=== PATIENT | male | born 1950 | race Caucasian/White ===

== ENCOUNTER 2016-10-17 13:44 | Inpatient (IN) | payer MEDICARE, BC ==
[~2016-10-17] VITALS: Ht 177.8 cm; Wt 110.5 kg
[2016-10-17] VITALS (415 sets, daily range): BP systolic 106–124; BP diastolic 57–92; PULSE 95–103; TEMP 96–99.2; O2SAT 80–100
[~2016-10-17 13:44] MED LIST: ADVAIR 250/28 DISKU1 IH; ALBUTEROL0.09 MG/A4 IH; ALBUTEROL0.83 MG/ML IH; AMOXICILLIN 8751 TAB PO; ANTIVERT 25MG25 MG PO; ASPIRIN E.C. 8181 MG PO; ATIVAN 1MG T1 MG/TAB PO; BENAZEPRIL40 MG PO; BUDESONIDE0.5 MG/2 M IH; BUPROPION300 MG PO; BYSTOLIC5 MG PO; CARDI-OMEGA1000 MG PO; COLCRYS0.6 MG PO; DALIRESP500 MCG PO; FLONASE NASAL S16 GM NS; FOLIC ACID 11 MG/TA1 PO; HCTZ 25MG TAB25 MG PO; HCTZ 25MG25 MG PO; K-DUR 2020 MEQ PO; LOTENSIN40 MG PO; MULTAQ400 MG PO; MULTIPLE VITAMI1 CAP PO; OYSCO 500500 M1 PO; PERFOROMIS20 MCG/2 M IH; PLAVIX 75MG TAB75 MG PO; PRADAXA 150MG150 MG PO; PRADAXA PO; PRADAXA150 MG PO; PRAVACHOL 40MG40 MG PO; PRAVACHOL40 MG PO; PREDNISONE20 MG PO; PROAIR HFA0.09 MG/AC IH; PULMICORT0.5 MG/2 M IH; RANITIDINE300 MG PO; RECLAST5 MG/1001 IV; RT ADVAIR 228 DISKUS IH; RT SPIRIVA18 MCG IH; THEO-DUR 2200 MG/TAB PO; TIKOSYN0.25 MG PO; WELLBUTRIN XL300 M1 PO; ZANTAC 300300 MG PO; ZOCOR 80MG80 MG PO; ZOCOR80 MG PO
[2016-10-17] MEDS ORDERED: LEVAQUIN 5500 MG/TA1 PO (13:58)
[2016-10-17] MEDS ORDERED: BYSTOLIC10 MG PO (14:02)
[2016-10-17 14:19] LABS: HEMATOCRIT 40.2 % (42.0-52.0); HEMOGLOBIN 12.5 g/dl (13.5-18.0); MEAN CELL VOLUME 98 fl (80.0-100.0); MEAN CORPUSCULAR HEMOGLOBIN 31 pg (27.0-31.0); MEAN CORPUSCULAR HGB CONC 31 g/dl (33.0-37.0); MEAN PLATELET VOLUME 10.1 fl (7.4-10.4); PLATELET COUNT 310 K/mm3 (130-400); REDCELL DISTRIBUTION WIDTH-CV 15.6 % (11.5-14.5)
[2016-10-17 14:19] LABS: ARTERIAL BLD GAS O2 SATURATION 96.2 % (92-100); ARTERIAL BLD GAS TCO2 CT 35.1; ARTERIAL BLOOD GAS BASE EXCESS 3.2 (-2-2); ARTERIAL BLOOD GAS HCO3 32.7 meq/L (22-26); ARTERIAL BLOOD GAS PHT 7.25 C (7.35-7.45); ARTERIAL BLOOD GAS PO2 96.6 mmHg (80-100); ARTERIAL BLOOD GAS PO2T 96.6 (80-100); ARTERIAL BLOOD GAS pH 7.25 (7.35-7.45); OXYHEMOGLOBIN 94.8 %
[2016-10-17 14:20] LABS: ALLEN TEST NO; ATS? YES
[2016-10-17 14:24] LABS: ADD PATHOLOGY DIFF REVIEW NO
[2016-10-17 14:26] LABS: PARTIAL THROMBOPLASTIN TIME 33.6 SECONDS (26.0-37.0)
[2016-10-17 14:31] LABS: INR 1.2 (0.8-3.0); PROTHROMBIN TIME 13.1 SECONDS (9.7-12.8)
[2016-10-17 14:44] LABS: BAND 6 % (0-10); METAMYELOCYTE 1 % (0-0); MYELOCYTE 3 % (0-0); NEUTROPHILS 80 % (42.0-75.2)
[2016-10-17 14:45] LABS: ADJUSTED CALCIUM 9.1 mg/dL (8.4-10.2); ALBUMIN 4.5 gm/dL (3.5-5.0); BILIRUBIN,TOTAL 0.8 mg/dL (0.0-1.0); CALCIUM 9.5 mg/dL (8.4-10.2); CREATININE, serum 1.01 mg/dL (0.66-1.25); PLATELET ESTIMATE NORMAL (NORMAL); POTASSIUM 4.9 mmol/L (3.4-5.0); TOTAL PROTEIN 7.9 gm/dL (6.4-8.2)
[2016-10-17 14:46] LABS: TOTAL CELLS COUNTED 101
[2016-10-17 14:56] LABS: TROPONIN-I 0.014 ng/mL (0.000-0.034)
[2016-10-17 16:11] LABS: PH 5 (5-8); SQUAMOUS EPITHELIAL 0-2 /hpf; URINE APPEARANCE Clear; URINE BACTERIA Rare /hpf; URINE BILIRUBIN Negative (NEGATIVE); URINE BLOOD Negative (NEGATIVE); URINE COLOR Yellow; URINE GLUCOSE Negative (NEGATIVE); URINE KETONE Negative (NEGATIVE); URINE RBC 0-2 /hpf; URINE UROBILINOGEN Negative (NEGATIVE); URINE WBC 0-2 /hpf
[2016-10-18] VITALS (1381 sets, daily range): BP systolic 115–168; BP diastolic 62–92; PULSE 71–91; TEMP 96.2–98.7; O2SAT 69–100
[2016-10-18 05:02] LABS: ARTERIAL BLD GAS TCO2 CT 36.6; ARTERIAL BLOOD GAS BASE EXCESS 7.8 (-2-2); ARTERIAL BLOOD GAS HCO3 34.8 meq/L (22-26); ARTERIAL BLOOD GAS PHT 7.38 C (7.35-7.45); ARTERIAL BLOOD GAS PO2 63.2 mmHg (80-100); ARTERIAL BLOOD GAS PO2T 63.2 (80-100); ARTERIAL BLOOD GAS pH 7.38 (7.35-7.45); OXYHEMOGLOBIN 89.7 %
[2016-10-18 05:04] LABS: ARTERIAL BLD GAS TCO2 CT 36.6; ARTERIAL BLOOD GAS BASE EXCESS 7.8 (-2-2); ARTERIAL BLOOD GAS HCO3 34.8 meq/L (22-26); ARTERIAL BLOOD GAS PO2 63.2 mmHg (80-100); ARTERIAL BLOOD GAS pH 7.38 (7.35-7.45); ATS? YES
[2016-10-18 09:41] LABS: ATS? YES
[2016-10-18 09:42] LABS: ALLEN TEST NO
[2016-10-18 12:44] LABS: MEAN CELL VOLUME 97 fl (80.0-100.0); MEAN CORPUSCULAR HGB CONC 32 g/dl (33.0-37.0); MEAN PLATELET VOLUME 9.8 fl (7.4-10.4); PLATELET COUNT 260 K/mm3 (130-400); RED BLOOD COUNT 3.64 M/mm3 (4.20-5.60); REDCELL DISTRIBUTION WIDTH-CV 15.7 % (11.5-14.5)
[2016-10-18 12:48] LABS: HEMATOCRIT 35.4 % (42.0-52.0); HEMOGLOBIN 11.3 g/dl (13.5-18.0); MEAN CORPUSCULAR HEMOGLOBIN 31 pg (27.0-31.0)
[2016-10-18 12:49] LABS: WHITE BLOOD COUNT 34.7 K/mm3 (4.8-10.8)
[2016-10-18 14:44] LABS: BAND 26 % (0-10); BASOPHIL 1 % (0-2); METAMYELOCYTE 3 % (0-0); MYELOCYTE 4 % (0-0); NEUTROPHILS 58 % (42.0-75.2); TOTAL CELLS COUNTED 300
[2016-10-18 14:46] LABS: ADD PATHOLOGY DIFF REVIEW YES; PLATELET ESTIMATE NORMAL (NORMAL)
[2016-10-18 17:08] LABS: CEREBROSPINAL TUBE #4; CSF APPEARANCE CLEAR; CSF COLOR COLORLESS
[2016-10-19] VITALS (1414 sets, daily range): BP systolic 129–173; BP diastolic 83–96; PULSE 72–104; TEMP 97.2–98.8; O2SAT 66–100
[2016-10-19 05:36] LABS: MEAN CELL VOLUME 99 fl (80.0-100.0); MEAN CORPUSCULAR HGB CONC 31 g/dl (33.0-37.0); MEAN PLATELET VOLUME 10.4 fl (7.4-10.4); PLATELET COUNT 284 K/mm3 (130-400); RED BLOOD COUNT 3.71 M/mm3 (4.20-5.60); REDCELL DISTRIBUTION WIDTH-CV 15.6 % (11.5-14.5)
[2016-10-19 05:37] LABS: HEMATOCRIT 36.6 % (42.0-52.0); HEMOGLOBIN 11.2 g/dl (13.5-18.0); MEAN CORPUSCULAR HEMOGLOBIN 30 pg (27.0-31.0); WHITE BLOOD COUNT 48.1 K/mm3 (4.8-10.8)
[2016-10-19 05:52] LABS: ADJUSTED CALCIUM 9.1 mg/dL (8.4-10.2); ALBUMIN 3.8 gm/dL (3.5-5.0); BILIRUBIN,TOTAL 0.7 mg/dL (0.0-1.0); CALCIUM 8.9 mg/dL (8.4-10.2); CREATININE, serum 0.93 mg/dL (0.66-1.25); POTASSIUM 3.8 mmol/L (3.4-5.0); TOTAL PROTEIN 6.7 gm/dL (6.4-8.2)
[2016-10-19 08:41] LABS: PATHOLOGY DIFF REVIEW OK +
[2016-10-19 14:18] LABS: ARTERIAL BLD GAS O2 SATURATION 95.8 % (92-100); ARTERIAL BLD GAS TCO2 CT 42.5; ARTERIAL BLOOD GAS BASE EXCESS 11.2 (-2-2); ARTERIAL BLOOD GAS HCO3 40.2 meq/L (22-26); ARTERIAL BLOOD GAS PHT 7.34 C (7.35-7.45); ARTERIAL BLOOD GAS pH 7.34 (7.35-7.45); OXYHEMOGLOBIN 94.6 %
[2016-10-19 14:19] LABS: ALLEN TEST YES; ALLENS TEST RESULT PASS; ATS? YES
[2016-10-20] VITALS (1157 sets, daily range): BP systolic 105–168; BP diastolic 71–94; PULSE 79–107; TEMP 96.9–98.5; O2SAT 52–100
[2016-10-20 01:25] LABS: ARTERIAL BLD GAS O2 SATURATION 96.4 % (92-100); ARTERIAL BLD GAS TCO2 CT 35.4; ARTERIAL BLOOD GAS BASE EXCESS 5.2 (-2-2); ARTERIAL BLOOD GAS HCO3 33.3 meq/L (22-26); ARTERIAL BLOOD GAS PHT 7.31 C (7.35-7.45); ARTERIAL BLOOD GAS PO2 100.3 mmHg (80-100); ARTERIAL BLOOD GAS PO2T 100.3 (80-100); ARTERIAL BLOOD GAS pH 7.31 (7.35-7.45); ATS? YES; OXYHEMOGLOBIN 95.4 %
[2016-10-20 01:26] LABS: ALLEN TEST YES; ALLENS TEST RESULT PASS
[2016-10-20 05:26] LABS: MEAN CELL VOLUME 100 fl (80.0-100.0); MEAN CORPUSCULAR HGB CONC 31 g/dl (33.0-37.0); MEAN PLATELET VOLUME 10.1 fl (7.4-10.4); PLATELET COUNT 278 K/mm3 (130-400); RED BLOOD COUNT 3.45 M/mm3 (4.20-5.60); REDCELL DISTRIBUTION WIDTH-CV 15.9 % (11.5-14.5)
[2016-10-20 05:34] LABS: HEMATOCRIT 34.5 % (42.0-52.0); HEMOGLOBIN 10.6 g/dl (13.5-18.0); MEAN CORPUSCULAR HEMOGLOBIN 31 pg (27.0-31.0); WHITE BLOOD COUNT 62.8 K/mm3 (4.8-10.8)
[2016-10-20 05:46] LABS: ADJUSTED CALCIUM 9.1 mg/dL (8.4-10.2); ALBUMIN 3.5 gm/dL (3.5-5.0); BILIRUBIN,TOTAL 0.7 mg/dL (0.0-1.0); CALCIUM 8.7 mg/dL (8.4-10.2); CREATININE, serum 0.96 mg/dL (0.66-1.25); TOTAL PROTEIN 6.3 gm/dL (6.4-8.2)
[2016-10-21] VITALS (857 sets, daily range): BP systolic 117–154; BP diastolic 77–97; PULSE 73–110; TEMP 97–98.7; O2SAT 62–100
[2016-10-21 04:47] LABS: MEAN CELL VOLUME 100 fl (80.0-100.0); MEAN CORPUSCULAR HGB CONC 31 g/dl (33.0-37.0); PLATELET COUNT 267 K/mm3 (130-400); RED BLOOD COUNT 3.38 M/mm3 (4.20-5.60); REDCELL DISTRIBUTION WIDTH-CV 15.9 % (11.5-14.5)
[2016-10-21 04:53] LABS: ADD PATHOLOGY DIFF REVIEW NO; HEMATOCRIT 33.8 % (42.0-52.0); HEMOGLOBIN 10.4 g/dl (13.5-18.0); MEAN CORPUSCULAR HEMOGLOBIN 31 pg (27.0-31.0); WHITE BLOOD COUNT 54.4 K/mm3 (4.8-10.8)
[2016-10-21 04:57] LABS: ADJUSTED CALCIUM 9.2 mg/dL (8.4-10.2); ALBUMIN 3.5 gm/dL (3.5-5.0); BILIRUBIN,TOTAL 0.7 mg/dL (0.0-1.0); CALCIUM 8.8 mg/dL (8.4-10.2); CREATININE, serum 0.99 mg/dL (0.66-1.25); POTASSIUM 3.8 mmol/L (3.4-5.0); TOTAL PROTEIN 6.1 gm/dL (6.4-8.2)
[2016-10-21 05:30] LABS: BAND 24 % (0-10); NEUTROPHILS 53 % (42.0-75.2)
[2016-10-21 05:33] LABS: TOTAL CELLS COUNTED 100
[2016-10-22] VITALS (573 sets, daily range): BP systolic 115–157; BP diastolic 62–96; PULSE 70–96; TEMP 97.7–98.5; O2SAT 84–100
[2016-10-22 05:48] LABS: MEAN CELL VOLUME 102 fl (80.0-100.0); MEAN CORPUSCULAR HGB CONC 30 g/dl (33.0-37.0); MEAN PLATELET VOLUME 9.8 fl (7.4-10.4); PLATELET COUNT 266 K/mm3 (130-400); RED BLOOD COUNT 3.41 M/mm3 (4.20-5.60); REDCELL DISTRIBUTION WIDTH-CV 15.8 % (11.5-14.5)
[2016-10-22 05:51] LABS: HEMATOCRIT 34.7 % (42.0-52.0); HEMOGLOBIN 10.5 g/dl (13.5-18.0); MEAN CORPUSCULAR HEMOGLOBIN 31 pg (27.0-31.0); WHITE BLOOD COUNT 40.1 K/mm3 (4.8-10.8)
[2016-10-22 05:52] LABS: ADD PATHOLOGY DIFF REVIEW NO
[2016-10-22 06:22] LABS: BAND 14 % (0-10); NEUTROPHILS 63 % (42.0-75.2); TOTAL CELLS COUNTED 100
[2016-10-23] VITALS (8 sets, daily range): BP systolic 118–160; BP diastolic 62–87; PULSE 77–87; TEMP 97.5–98.8
[2016-10-24 04:02] VITALS: BP 131/91; PULSE 84; TEMP 97.5
[2016-10-24 07:22] LABS: CALCIUM 8.9 mg/dL (8.4-10.2); CREATININE, serum 1.99 mg/dL (0.66-1.25); MAGNESIUM 2.3 mg/dL (1.6-2.3); PHOSPHOROUS 4.6 mg/dL (2.5-4.5); POTASSIUM 3.4 mmol/L (3.4-5.0)
[2016-10-24 07:32] LABS: MEAN CELL VOLUME 103 fl (80.0-100.0); MEAN CORPUSCULAR HGB CONC 30 g/dl (33.0-37.0); MEAN PLATELET VOLUME 10.3 fl (7.4-10.4); PLATELET COUNT 267 K/mm3 (130-400); RED BLOOD COUNT 3.17 M/mm3 (4.20-5.60); REDCELL DISTRIBUTION WIDTH-CV 15.8 % (11.5-14.5)
[2016-10-24 07:45] LABS: ADD PATHOLOGY DIFF REVIEW NO; HEMATOCRIT 32.5 % (42.0-52.0); HEMOGLOBIN 9.8 g/dl (13.5-18.0); MEAN CORPUSCULAR HEMOGLOBIN 31 pg (27.0-31.0)
[2016-10-24 07:56] VITALS: BP 154/79; PULSE 87; TEMP 97
[2016-10-24 08:34] LABS: BAND 5 % (0-10); EOSINOPHIL 1 % (0-4); NEUTROPHILS 75 % (42.0-75.2); TOTAL CELLS COUNTED 100
[2016-10-24 12:27] VITALS: BP 133/81; PULSE 77; TEMP 97.2
[2016-10-24 13:12] LABS: ARTERIAL BLD GAS O2 SATURATION 96.1 % (92-100); ARTERIAL BLOOD GAS BASE EXCESS 13.1 (-2-2); ARTERIAL BLOOD GAS HCO3 41.5 meq/L (22-26); ARTERIAL BLOOD GAS PHT 7.34 C (7.35-7.45); ARTERIAL BLOOD GAS PO2 95.8 mmHg (80-100); ARTERIAL BLOOD GAS PO2T 95.8 (80-100); ARTERIAL BLOOD GAS pH 7.34 (7.35-7.45); OXYHEMOGLOBIN 95.1 %
[2016-10-24 13:14] LABS: ALLEN TEST YES; ALLENS TEST RESULT PASS; ATS? YES
[2016-10-24 16:45] VITALS: BP 162/82; PULSE 78; TEMP 98.3
[2016-10-24 19:53] VITALS: BP 156/86; PULSE 77; TEMP 98.2
[2016-10-24 23:48] VITALS: BP 144/76; PULSE 80; TEMP 98.9
[2016-10-25 04:01] VITALS: BP 165/81; PULSE 80; TEMP 96.8
[2016-10-25 08:29] VITALS: BP 150/84; PULSE 87; TEMP 98.4
[2016-10-25 11:24] VITALS: BP 160/88; PULSE 77; TEMP 98.2
[2016-10-25 16:45] VITALS: BP 144/85; PULSE 100; TEMP 98
[2016-10-25 18:10] VITALS: BP 144/85; PULSE 81; TEMP 98
[2016-10-25 20:15] VITALS: BP 171/73; PULSE 78; TEMP 98.3
[2016-10-26 00:17] VITALS: BP 167/90; PULSE 70; TEMP 97.3
[2016-10-26 04:04] VITALS: BP 171/88; PULSE 77; TEMP 98.1
[2016-10-26 08:00] VITALS: BP 180/98; PULSE 79; TEMP 99.5
[2016-10-26 11:26] VITALS: BP 149/90; PULSE 74; TEMP 98.8
[2016-10-26 16:09] VITALS: BP 187/84; PULSE 79; TEMP 98.6
[2016-10-26 20:27] VITALS: BP 168/73; PULSE 70; TEMP 98.3
[2016-10-27] VITALS (14 sets, daily range): BP systolic 138–181; BP diastolic 69–100; PULSE 66–701; TEMP 97.6–98.5
[2016-10-27 07:58] LABS: ADD PATHOLOGY DIFF REVIEW NO
[2016-10-27 08:00] LABS: MEAN CELL VOLUME 100 fl (80.0-100.0); MEAN CORPUSCULAR HGB CONC 31 g/dl (33.0-37.0); PLATELET COUNT 245 K/mm3 (130-400); RED BLOOD COUNT 3.31 M/mm3 (4.20-5.60); REDCELL DISTRIBUTION WIDTH-CV 15.4 % (11.5-14.5); WHITE BLOOD COUNT 18.4 K/mm3 (4.8-10.8)
[2016-10-27 08:09] LABS: HEMATOCRIT 33.2 % (42.0-52.0); HEMOGLOBIN 10.3 g/dl (13.5-18.0); MEAN CORPUSCULAR HEMOGLOBIN 31 pg (27.0-31.0)
[2016-10-27 08:18] LABS: CALCIUM 9.3 mg/dL (8.4-10.2); CREATININE, serum 1.87 mg/dL (0.66-1.25); POTASSIUM 3.1 mmol/L (3.4-5.0)
[2016-10-27 09:12] LABS: EOSINOPHIL 2 % (0-4); NEUTROPHILS 86 % (42.0-75.2); PLATELET ESTIMATE NORMAL (NORMAL); TOTAL CELLS COUNTED 100
[2016-10-28 03:42] VITALS: BP 149/75; PULSE 74; TEMP 98.2
[2016-10-28 08:05] VITALS: BP 169/78; PULSE 75; TEMP 98.1
[2016-10-28 08:48] LABS: ARTERIAL BLD GAS O2 SATURATION 97.9 % (92-100); ARTERIAL BLD GAS TCO2 CT 35.9; ARTERIAL BLOOD GAS BASE EXCESS 7.9 (-2-2); ARTERIAL BLOOD GAS HCO3 34.1 meq/L (22-26); OXYHEMOGLOBIN 96.9 %
[2016-10-28 08:49] LABS: ARTERIAL BLOOD GAS PO2 132.3 mmHg (80-100); ARTERIAL BLOOD GAS PO2T 132.3 (80-100)
[2016-10-28 08:50] LABS: ALLEN TEST YES; ALLENS TEST RESULT PASS; ATS? YES
[2016-10-28 11:53] VITALS: BP 158/79; PULSE 68; TEMP 98.1
[2016-10-28 15:43] VITALS: BP 175/88; PULSE 80; TEMP 98.1
[2016-10-28 20:06] VITALS: BP 138/73; PULSE 72; TEMP 97
[2016-10-28 23:29] VITALS: BP 136/74; PULSE 68; TEMP 98.4
[2016-10-29 03:56] VITALS: BP 176/82; PULSE 69; TEMP 98
[2016-10-29 08:32] VITALS: BP 154/77; PULSE 97; TEMP 98.4
[2016-10-29 12:27] VITALS: BP 147/79; PULSE 73; TEMP 97.7
[2016-10-29 16:47] VITALS: BP 155/78; PULSE 73; TEMP 97.8
[2016-10-29 20:33] VITALS: BP 156/74; PULSE 72; TEMP 97.3
[2016-10-30 00:28] VITALS: BP 165/85; PULSE 65; TEMP 97.6
[2016-10-30 03:51] VITALS: BP 185/87; PULSE 69; TEMP 97.4
[2016-10-30 07:11] LABS: MEAN CELL VOLUME 98 fl (80.0-100.0); MEAN CORPUSCULAR HGB CONC 31 g/dl (33.0-37.0); MEAN PLATELET VOLUME 10.8 fl (7.4-10.4); PLATELET COUNT 238 K/mm3 (130-400); RED BLOOD COUNT 3.13 M/mm3 (4.20-5.60); REDCELL DISTRIBUTION WIDTH-CV 15.3 % (11.5-14.5); WHITE BLOOD COUNT 13.1 K/mm3 (4.8-10.8)
[2016-10-30 07:19] LABS: ADD PATHOLOGY DIFF REVIEW NO; HEMATOCRIT 30.8 % (42.0-52.0); HEMOGLOBIN 9.6 g/dl (13.5-18.0); MEAN CORPUSCULAR HEMOGLOBIN 31 pg (27.0-31.0)
[2016-10-30 08:19] LABS: BAND 1 % (0-10); MYELOCYTE 1 % (0-0); NEUTROPHILS 83 % (42.0-75.2); PLATELET ESTIMATE NORMAL (NORMAL); TOTAL CELLS COUNTED 100
[2016-10-30 09:28] VITALS: BP 180/89; PULSE 78; TEMP 97.8
[2016-10-30 10:12] LABS: ARTERIAL BLD GAS TCO2 CT 34.4; ARTERIAL BLOOD GAS PO2T 113.9 (80-100)
[2016-10-30 10:16] LABS: ARTERIAL BLOOD GAS HCO3 32.7 meq/L (22-26); ARTERIAL BLOOD GAS PO2 113.9 mmHg (80-100)
[2016-10-30 10:17] LABS: ALLEN TEST YES; ALLENS TEST RESULT PASS; ARTERIAL BLD GAS O2 SATURATION 97.6 % (92-100); ARTERIAL BLOOD GAS BASE EXCESS 6.6 (-2-2); ATS? YES
[2016-10-30 12:12] VITALS: BP 178/86; PULSE 66; TEMP 98.7
[2016-10-30 16:31] VITALS: BP 163/78; PULSE 65; TEMP 97.4
[2016-10-30 19:56] VITALS: BP 176/87; PULSE 66; TEMP 97
[2016-10-31 00:26] VITALS: BP 178/84; PULSE 69; TEMP 97.6
[2016-10-31 02:45] VITALS: BP 184/89; PULSE 73; TEMP 97
[2016-10-31 07:40] VITALS: BP 188/93; PULSE 68
[2016-10-31 08:06] LABS: ARTERIAL BLD GAS O2 SATURATION 98.8 % (92-100); ARTERIAL BLOOD GAS BASE EXCESS 6.3 (-2-2); ARTERIAL BLOOD GAS HCO3 33.2 meq/L (22-26); ARTERIAL BLOOD GAS PHT 7.37 C (7.35-7.45); ARTERIAL BLOOD GAS pH 7.37 (7.35-7.45)
[2016-10-31 08:07] LABS: ARTERIAL BLOOD GAS PO2 190.4 mmHg (80-100); ARTERIAL BLOOD GAS PO2T 190.4 (80-100); ATS? YES
[2016-10-31 09:28] LABS: CALCIUM 9.1 mg/dL (8.4-10.2); CREATININE, serum 1.51 mg/dL (0.66-1.25)
[2016-10-31 10:15] LABS: POTASSIUM 2.8 mmol/L (3.4-5.0)
[2016-10-31 13:40] VITALS: BP 175/81; PULSE 74; TEMP 96.4
[2016-10-31 16:19] VITALS: BP 169/85; PULSE 77; TEMP 97.2
[2016-10-31 19:32] VITALS: BP 177/91; PULSE 77; TEMP 97.1
[2016-11-01] VITALS (7 sets, daily range): BP systolic 143–178; BP diastolic 75–96; PULSE 67–80; TEMP 97–98
[2016-11-02 03:55] VITALS: BP 160/82; PULSE 73; TEMP 97.2
[2016-11-02 07:44] VITALS: BP 158/87; PULSE 77; TEMP 97.4
[2016-11-02] MEDS ORDERED: FLAGYL500 MG PO (08:53)
[2016-11-02] MEDS ORDERED: LEXAPRO 10MG10 MG PO (08:58)
[2016-11-02 09:55] VITALS: BP 158/87; PULSE 77; TEMP 97.4
[2016-11-02 12:06] VITALS: BP 148/83; PULSE 70; TEMP 97.7
[2016-11-10 10:15] LABS: 14-3-3 PROTEIN CSF <2.0 (()); WEST NILE VIRUS IGG PCR CSF Negative (())
== END 2016-11-02 13:46 | DRG 163 ==
LOC: COL.ER 13:44 → ICU 15:18 → MEDICAL 15:18 → ICU 16:40 → IMCU 10-20 11:48 → MEDICAL 10-22 11:55
PROVIDERS: Emergency Medicine; Internal Medicine; Internal Medicine Pulmonary Disease; Psychiatry & Neurology Neurology
PROC: 0B948ZZ Drainage of Right Upper Lobe Bronchus, Via Natural or Artificial Opening Endoscopic (ICD-10-PCS; principal; 2016-10-18)
PROC: 0B958ZZ Drainage of Right Middle Lobe Bronchus, Via Natural or Artificial Opening Endoscopic (ICD-10-PCS; 2016-10-18)
PROC: 0B968ZZ Drainage of Right Lower Lobe Bronchus, Via Natural or Artificial Opening Endoscopic (ICD-10-PCS; 2016-10-18)
PROC: 0B988ZZ Drainage of Left Upper Lobe Bronchus, Via Natural or Artificial Opening Endoscopic (ICD-10-PCS; 2016-10-18)
PROC: 0B9B8ZZ Drainage of Left Lower Lobe Bronchus, Via Natural or Artificial Opening Endoscopic (ICD-10-PCS; 2016-10-18)
PROC: 009U3ZX Drainage of Spinal Canal, Percutaneous Approach, Diagnostic (ICD-10-PCS; 2016-10-18)
PROC: 0B968ZZ Drainage of Right Lower Lobe Bronchus, Via Natural or Artificial Opening Endoscopic (ICD-10-PCS; 2016-10-22)
PROC: 0B9B8ZZ Drainage of Left Lower Lobe Bronchus, Via Natural or Artificial Opening Endoscopic (ICD-10-PCS; 2016-10-22)
PROC: 0B968ZZ Drainage of Right Lower Lobe Bronchus, Via Natural or Artificial Opening Endoscopic (ICD-10-PCS; 2016-10-27)
PROC: 0B9B8ZZ Drainage of Left Lower Lobe Bronchus, Via Natural or Artificial Opening Endoscopic (ICD-10-PCS; 2016-10-27)
DX: J96.21 Acute and chronic respiratory failure with hypoxia (principal); I63.8 Other cerebral infarction; J44.1 Chronic obstructive pulmonary disease with (acute) exacerbation; E87.2 Acidosis; A04.7 Enterocolitis due to Clostridium difficile; Z66 Do not resuscitate; R44.2 Other hallucinations; C92.10 Chronic myeloid leukemia, BCR/ABL-positive, not having achieved remission; J96.22 Acute and chronic respiratory failure with hypercapnia; I25.10 Atherosclerotic heart disease of native coronary artery without angina pectoris; Z95.5 Presence of coronary angioplasty implant and graft; Z87.891 Personal history of nicotine dependence; I48.2 Chronic atrial fibrillation; I10 Essential (primary) hypertension; F41.0 Panic disorder [episodic paroxysmal anxiety]
CPT/HCPCS: A6197; A6212; C1751; C1894; J1644; J1940; J2060; J2270; J2543; J2704; J2930; J3370; J3480; J7050; J7120

== ENCOUNTER → 2016-11-09 | Outpatient (REF) ==
[~2016-11-09] MED LIST changes: +BYSTOLIC10 MG PO; +FLAGYL500 MG PO; +LEVAQUIN 5500 MG/TA1 PO; +LEXAPRO 10MG10 MG PO
[2016-11-09 14:28] LABS: BASO # 0.5 (0.0-0.2); BASO % 2.8 % (0.0-2.0); EOS # 0.1 (0.0-0.7); EOS % 0.4 % (0-4.0); GRAN # 13.1 (1.4-6.5); GRAN % 82.1 % (42.2-75.2); HEMATOCRIT 33.4 % (42.0-52.0); HEMOGLOBIN 10.5 g/dl (13.5-18.0); LYMPH # 1.3 (1.2-3.4); LYMPH % 8.4 % (20.0-51.0); MEAN CELL VOLUME 99 fl (80.0-100.0); MEAN CORPUSCULAR HEMOGLOBIN 31 pg (27.0-31.0); MEAN CORPUSCULAR HGB CONC 31 g/dl (33.0-37.0); MEAN PLATELET VOLUME 10.8 fl (7.4-10.4); MONO # 0.9 (0.1-0.6); MONO % 5.3 % (1.7-9.3); PLATELET COUNT 387 K/mm3 (130-400); RED BLOOD COUNT 3.38 M/mm3 (4.20-5.60); REDCELL DISTRIBUTION WIDTH-CV 15.4 % (11.5-14.5)
[2016-11-09 15:01] LABS: CALCIUM 8.6 mg/dL (8.4-10.2); CREATININE, serum 1.43 mg/dL (0.66-1.25); POTASSIUM 4.6 mmol/L (3.4-5.0)
== END ==
LOC: ZLAB.STJ 14:17
PROVIDERS: Emergency Medicine
DX: Z01.89 Encounter for other specified special examinations (principal)

== ENCOUNTER → 2016-11-13 | Outpatient (CLI) | payer MEDICARE, BC | LOC: WCC 09:30 | DX: I83.015 Varicose veins of right lower extremity with ulcer other part of foot (principal); I87.8 Other specified disorders of veins | CPT/HCPCS: 17717; 27510; A6197; A6212; G0463 ==

== ENCOUNTER → 2016-11-15 | Outpatient (REF) ==
[2016-11-15 09:54] LABS: BASO # 0.4 (0.0-0.2); BASO % 3.5 % (0.0-2.0); EOS # 0.2 (0.0-0.7); EOS % 1.2 % (0-4.0); GRAN # 9.2 (1.4-6.5); GRAN % 74.5 % (42.2-75.2); LYMPH # 1.6 (1.2-3.4); LYMPH % 12.9 % (20.0-51.0); MEAN CELL VOLUME 97 fl (80.0-100.0); MEAN CORPUSCULAR HGB CONC 32 g/dl (33.0-37.0); MEAN PLATELET VOLUME 10.5 fl (7.4-10.4); MONO # 0.9 (0.1-0.6); MONO % 6.9 % (1.7-9.3); PLATELET COUNT 314 K/mm3 (130-400); RED BLOOD COUNT 3.51 M/mm3 (4.20-5.60); REDCELL DISTRIBUTION WIDTH-CV 15.3 % (11.5-14.5); WHITE BLOOD COUNT 12.4 K/mm3 (4.8-10.8)
[2016-11-15 10:04] LABS: CREATININE, serum 1.18 mg/dL (0.66-1.25); POTASSIUM 4.7 mmol/L (3.4-5.0)
[2016-11-15 10:51] LABS: HEMATOCRIT 34.1 % (42.0-52.0); HEMOGLOBIN 10.8 g/dl (13.5-18.0); MEAN CORPUSCULAR HEMOGLOBIN 31 pg (27.0-31.0)
== END ==
LOC: ZLAB.STJ 09:36
PROVIDERS: Emergency Medicine
DX: Z01.89 Encounter for other specified special examinations (principal)

== ENCOUNTER → 2016-11-20 | Outpatient (CLI) | payer MEDICARE, BC | LOC: WCC 08:34 | DX: L89.819 Pressure ulcer of head, unspecified stage (principal) | CPT/HCPCS: 17717; A6212; G0463 ==

== ENCOUNTER → 2016-11-22 | Outpatient (REF) ==
[2016-11-22 09:46] LABS: MEAN CELL VOLUME 98 fl (80.0-100.0); MEAN CORPUSCULAR HGB CONC 31 g/dl (33.0-37.0); MEAN PLATELET VOLUME 10.4 fl (7.4-10.4); PLATELET COUNT 343 K/mm3 (130-400); RED BLOOD COUNT 3.66 M/mm3 (4.20-5.60); REDCELL DISTRIBUTION WIDTH-CV 15.4 % (11.5-14.5); WHITE BLOOD COUNT 12.6 K/mm3 (4.8-10.8)
[2016-11-22 09:52] LABS: ADD PATHOLOGY DIFF REVIEW NO; HEMATOCRIT 35.7 % (42.0-52.0); HEMOGLOBIN 11.1 g/dl (13.5-18.0); MEAN CORPUSCULAR HEMOGLOBIN 30 pg (27.0-31.0)
[2016-11-22 10:02] LABS: BAND 10 % (0-10); BASOPHIL 2 % (0-2); EOSINOPHIL 3 % (0-4); NEUTROPHILS 73 % (42.0-75.2); PLATELET ESTIMATE NORMAL (NORMAL); TOTAL CELLS COUNTED 100
[2016-11-22 10:03] LABS: CALCIUM 9.6 mg/dL (8.4-10.2); CREATININE, serum 1.18 mg/dL (0.66-1.25); POTASSIUM 4.7 mmol/L (3.4-5.0)
== END ==
LOC: ZLAB.STJ 09:35
PROVIDERS: Emergency Medicine
DX: Z01.89 Encounter for other specified special examinations (principal)